=== PATIENT | female | born 1995 ===

== ENCOUNTER 2016-12-07 22:58 | Emergency (ER) | payer OTHER ==
[~2016-12-07] VITALS: Ht 172.7 cm; Wt 118.2 kg
[2016-12-07 23:06] VITALS: BP 152/97; PULSE 95; RESP 18; O2SAT 97
--- NOTE | 2016-12-07 23:32 | ED.REPORT ---
HPI-Seizure Date of Service Dec 07, 2016 ED Provider: Nursing Notes Stated Complaint: FLU SYMPTOMS Chief Complaint: FLU/Cold Symptoms Nursing Notes Reviewed: Yes Allergies: Coded Allergies: amoxicillin (Verified Allergy, Intermediate, HIVES, 12/07/16) Physical Exam Initial Vital Signs Vital Signs (First) Date Time Temp Pulse Resp B/P Pulse Ox O2 Delivery O2 Flow Rate FiO2 12/07/16 23:06 37.0 95 18 152/97 97 Galindo Trevizo MD Dec 07, 2016 23:32
--- NOTE | 2016-12-08 00:07 | ED.REPORT ---
HPI-General Illness Date of Service Dec 08, 2016 ED Provider: William Vicente DO A healthy 21 year old female presents to the ED with cough, rhinorrhea, and sore throat onset three days ago. Associated symptoms include nausea, vomiting, decreased appetite and right ear pain. Nursing Notes Stated Complaint: FLU SYMPTOMS Chief Complaint: FLU/Cold Symptoms Nursing Notes Reviewed: Yes Allergies: Coded Allergies: amoxicillin (Verified Allergy, Intermediate, HIVES, 12/07/16) General Time Seen by MD: 00:06 Chief Complaint Cough, Sore throat, Other (Rhinorrhea) Hx Obtained From: Patient Arrived By: Walk-in Sudden in Onset?: No Onset Occurred: 3 days ago Symptom Duration: Since onset Location: : Ear right: Neck (Throat) Quality: Painful Severity: Current: Moderate Severity: Maximum: Moderate Associated with: Reports: Dizziness, Vomiting, Denies: Fever Pertinent Negative: Relieved by nothing Recent Healthcare: No recent doctor visit Past Medical History Past Medical History None reported Past Surgical History None reported Smoking History Current Every Day Smoker Social History Other Social History: Good social support Ambulatory Status Independent Review of Systems + decreased appetite Full Review of Systems Constitutional: Denies: Fever Ears / Nose / Throat: Reports: Earache right, Sore throat Respiratory: Reports: Non-productive cough GI: Reports: Nausea, Vomiting Allergy / Immune: Reports: Rhinorrhea Neurologic: Denies: Abnormal movement, Dizziness, Focal weakness, Headache, Slurred speech, Spinning sensation, Syncope Complete sys rev & neg: except as marked. Physical Exam Vital Signs Vital Signs Date Time Temp Pulse Resp B/P Pulse Ox O2 Delivery O2 Flow Rate FiO2 12/08/16 01:38 95 133/89 100 Room Air 12/08/16 01:29 92 16 98 Room Air 12/07/16 23:06 37.0 95 18 152/97 97 Initial VS: Reviewed Head / Eyes: Atraumatic, Normocephalic Neck: Supple, Full range of motion Cardiovascular: Regular rate & rhythm, Heart sounds normal Skin: Warm, Dry, No cyanosis Neurologic: Alert, Oriented, Nonfocal Psychiatric: Mood/affect normal, Behavior normal, Normal thought content General/Constitutional: Awake, Alert, No acute distress ENT: Airway patent, Mucous membranes moist Pharynx / Tonsils / Uvula: Positive: Pharyngeal erythema Right Ear / Mastoid: Positive: Fluid behind TM clear, Tympanic membrane red Respiratory / Chest: Atraumatic, No respiratory distress Wheezing / Retractions: Positive: Wheezing moderate (Left lung) Interpretation & Diagnostics INFLUENZA NEGATIVE Re-Eval/Medical Decision Med Decision/Clinical Course 21-year-old female with otitis media, bronchitis and pharyngitis. Her flu swab was negative. She improved with beta agonists. Pulmonary emboli felt to be unlikely and therefore d-dimer not indicated. She meets pulmonary emboli rule out criteria. She has an obvious infectious source of her symptoms. She does not have any chest pain or shortness of breath. She does not have DVT or PE risk factors. Recommend close outpatient follow-up regarding the infection. Time of Eval: 01:30 Patient Status: Condition improved Re-Evaluation/Progress Note: Discussed with patient lab results, diagnosis, and plan for discharge. Follow-up and return to the ER instructions given. Patient agrees with plan for care and all questions were addressed. Counseled Regarding: Diagnosis, Lab results, Need for follow-up, When/why to return to ED Discharge & Departure Primary Impression: Pharyngitis Pharyngitis/tonsillitis etiology: unspecified etiology Qualified Code: J02.9 - Acute pharyngitis, unspecified Additional Impressions: Otitis media Otitis media type: suppurative Laterality: right Chronicity: acute Recurrence: not specified Spontaneous tympanic membrane rupture: without spontaneous rupture Qualified Code: H66.001 - Acute suppurative otitis media without spontaneous rupture of ear drum, right ear Reactive airway disease Asthma severity: mild intermittent Asthma complication type: with acute exacerbation Qualified Code: J45.21 - Mild intermittent asthma with (acute) exacerbation Disposition: Home Discharge Condition All VS Reviewed: Yes Condition: Stable Patient Instructions: Acute Bronchitis (ED), Otitis Media (DC), Pharyngitis (ED ) Additional Instructions: Albuterol 2 puffs every 4 hours as needed for coughing and wheezing. Finish the Medrol Dosepak. Finish the Z-Wilfrid. You have an infected right eardrum as well as an infected throat. You may also be developing walking pneumonia. Set up a follow-up with your primary care physician for later this week. Return to the emergency department if you develop any chest pain, shortness of breath, or any new or worsening symptoms. Referrals: Jyoti Ayala MD (PCP) Scribe Attestation Portions of this note were transcribed by Cathy Valerio. I, Dr. Vicente, personally performed the history, physical exam, and medical decision-making; I reviewed and confirmed the accuracy of the information in the transcribed note. Signed by: Carla Ribera, 12/08/2016, 02:50 copies to: Jyoti Ayala MD, Todd P DO Dec 08, 2016 00:07 CATHY VALERIO Dec 08, 2016 00:29
[2016-12-08] MEDS ORDERED: _Ondansetron ODT 4 mg Tablet PO PRN (00:30)
[2016-12-08] MEDS ORDERED: _Albuterol-HFA 60 Puff Inhaler INHALATION PRN (00:30)
[2016-12-08] MEDS ORDERED: Albuterol-Ipratropium 3 mL Inhalation Solution NEB ONE (00:30)
[2016-12-08 01:29] VITALS: PULSE 92; RESP 16; O2SAT 98
[2016-12-08 01:38] VITALS: BP 133/89; PULSE 95; O2SAT 100
== END 2016-12-08 01:38 | disposition home or self-care (01) ==
LOC: SED 22:58
DX: J02.9 Acute pharyngitis, unspecified (principal); H66.001 Acute suppurative otitis media without spontaneous rupture of ear drum, right ear; J45.21 Mild intermittent asthma with (acute) exacerbation; F17.200 Nicotine dependence, unspecified, uncomplicated; Z88.0 Allergy status to penicillin
CPT/HCPCS: 87804; 94640; 99284; J7620